=== PATIENT | female | born 1955 ===

== ENCOUNTER 2016-08-24 09:52 | Emergency (ER) | payer OTHER ==
--- NOTE | 2016-08-24 10:17 | UC ---
Throat Pain/Nasal Alvin HPI - HPI Summary HPI Summary: 60 YEAR OLD FEMALE PRESENTS WITH COMPLAINS OF RUNNY NOSE, COUGH, AND CHEST CONGESTION. - History of Current Complaint Chief Complaint: UCRespiratory Stated Complaint: PERSISTENT COLD SYMPTOMS Time Seen by Provider: 08/24/16 10:11 - Allergies/Home Medications Allergies/Adverse Reactions: Allergies Allergy/AdvReac Type Severity Reaction Status Date / Time No Known Allergies Allergy Verified 08/24/16 10:12 Home Medications: Home Medications Levothyroxine TAB* [Synthroid 25 MCG TAB*] 25 mcg PO DAILY 08/24/16 [History Confirmed 08/24/16] PMH/Surg Hx/FS Hx/Imm Hx - Surgical History Surgical History: Yes Surgery Procedure, Year, and Place: C section - Social History Alcohol Use: Occasionally Substance Use Type: None Smoking Status (MU): Former Smoker Review of Systems Constitutional: Negative Skin: Negative Eyes: Negative ENT: Sore Throat, Nasal Discharge, Sinus Congestion Respiratory: Cough Cardiovascular: Negative Gastrointestinal: Negative Genitourinary: Negative Motor: Negative Neurovascular: Negative Musculoskeletal: Negative Neurological: Negative Psychological: Negative All Other Systems Reviewed And Are Negative: Yes Physical Exam Triage Information Reviewed: Yes Vital Signs: Initial Vital Signs Pulse 58 08/24/16 10:07 Resp 18 08/24/16 10:07 BP 137/65 08/24/16 10:07 Pulse Ox 99 08/24/16 10:07 Eye Exam: Normal ENT: Positive: Pharyngeal erythema, Nasal congestion, Nasal drainage Dental Exam: Normal Neck exam: Normal Neck: Positive: 1 Respiratory Exam: Normal Cardiovascular Exam: Normal Abdominal Exam: Normal Musculoskeletal Exam: Normal Neurological Exam: Normal Psychological Exam: Normal Skin Exam: Normal Throat Pain/Nasal Course/Dx - Differential Dx/Diagnosis Provider Diagnoses: ALLERGIC RHINNITIS Discharge - Discharge Plan Condition: Stable Disposition: HOME Prescriptions: Amoxicillin CAP* [Amoxicillin 500 MG CAP*] 500 mg PO TID #30 cap Patient Education Materials: Allergic Rhinitis (ED) Referrals: Non Staff,Doctor [Primary Care Provider] -
== END 2016-08-24 10:24 | disposition home or self-care (01) ==
LOC: UCEAST 09:52
DX: J30.9 Allergic rhinitis, unspecified (principal); Z87.891 Personal history of nicotine dependence
CPT/HCPCS: 99202; G0463